=== PATIENT | male | born 1995 | race Caucasian/White ===

== ENCOUNTER 2019-07-20 20:57 | Emergency (ER) | payer OTHER ==
[2019-07-20 21:05] VITALS: BP 144/91; PULSE 110; RESP 20; TEMP 99
[2019-07-20] MEDS ORDERED: ACETAMINOPHEN TAB 325 MG TAB PO STA (21:21)
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
== END 2019-07-20 21:36 | disposition home or self-care (01) ==
LOC: EC 20:57
DX: S00.03XA Contusion of scalp, initial encounter (principal); S00.83XA Contusion of other part of head, initial encounter; Y04.0XXA Assault by unarmed brawl or fight, initial encounter; Y92.69 Other specified industrial and construction area as the place of occurrence of the external cause; Y99.0 Civilian activity done for income or pay
CPT/HCPCS: 99283